=== PATIENT | female | born 1980 | race Caucasian/White ===

== ENCOUNTER 2016-06-14 09:02 | Emergency (ER) | payer OTHER ==
[2016-06-14 09:15] VITALS: RESP 16
[2016-06-14 09:38] LABS: % IMMATURE GRANULYOCYTES 0.3 % (0.0-1.1); ABSOLUTE IMMATURE GRANULOCYTES 0.02 10^3/uL (0.00-0.10); ADD DIFF? NO; ADD MORPH? NO; ADD SCAN? NO; ATYPICAL LYMPHOCYTE FLAG 10 (0-99); FRAGMENT RBC FLAG 0 (0-99); HEMATOCRIT 42.8 % (38.0-47.0); HEMOGLOBIN 14.6 g/dL (12.6-16.3); LEFT SHIFT FLG 0 (0-99); LIPEMIA HEMOLYSIS FLAG 90 (0-99); MEAN CELL HEMOGLOBIN 30.9 pg (27.9-34.1); MEAN CELL HEMOGLOBIN CONCENTR. 34.1 g/dL (32.4-36.7); MEAN CELL VOLUME 90.5 fL (81.5-99.8); MEAN PLATELET VOLUME 11.2 fL (8.7-11.7); PLATELET CLUMPS FLAG 0 (0-99); PLATELET COUNT 216 10^3/uL (150-400); RED BLOOD CELL COUNT 4.73 10^6/uL (4.18-5.33); RED CELL DISTRIBUTION WIDTH 12.2 % (11.5-15.2)
--- NOTE | 2016-06-14 09:39 | EDPHY ---
H & P Stated Complaint: HEADACHE FOR 3 WEEKS, SAW PCP AND EENT, NOT VERTIGO Time Seen by Provider: 06/14/16 09:03 HPI/ROS: CHIEF COMPLAINT: Headache, vertigo worsened with head movement HISTORY OF PRESENT ILLNESS: The patient presents to the ED with a 3 week history of progressively worsening intermittent severe headache. Patient describes a severe retro-orbital headache which is requiring her to use Excedrin on a near daily basis. She has also had some symptoms of vertigo which are exacerbated by flexion of her neck to the full forward position. The patient has been evaluated by ENT who did not find the patient to have symptoms consistent with benign positional vertigo. The patient presents to the emergency department requesting further evaluation. She denies specific complaints of numbness, weakness, head injury, neck pain or neck trauma. The patient is able to recreate her symptoms of vertigo with a forward flexion. REVIEW OF SYSTEMS: A comprehensive 10 point review of systems is otherwise negative aside from elements mentioned in the history of present illness. Source: Patient Exam Limitations: No limitations - Personal History LMP (Females 10-55): 22-28 Days Ago Current Tetanus Diphtheria and Acellular Pertussis (TDAP): Yes Tetanus Vaccine Date: < 10 YEARS - Medical/Surgical History Hx Asthma: No Hx Chronic Respiratory Disease: No Hx Diabetes: No Hx Cardiac Disease: No Hx Renal Disease: No Hx Cirrhosis: No Hx Alcoholism: No Hx HIV/AIDS: No Hx Splenectomy or Spleen Trauma: No Other PMH: R ACL REPAIR - Social History Smoking Status: Never smoked - Physical Exam Exam: General Appearance: Alert, no distress Eyes: Pupils equal and round no pallor or injection ENT, Mouth: Mucous membranes moist Respiratory: There are no retractions, lungs are clear to auscultation Cardiovascular: Regular rate and rhythm Gastrointestinal: Abdomen is soft and nontender, no masses, bowel sounds normal Neurological: Alert and oriented x4, 5/5 strength all 4 extremities, cranial nerves 2-12 intact Skin: Warm and dry, no rashes Musculoskeletal: Neck is supple nontender, no bruit Extremities: symmetrical, full range of motion Constitutional: Initial Vital Signs Temperature (C) 36.7 C 06/14/16 09:13 Heart Rate 87 06/14/16 09:13 Respiratory Rate 16 06/14/16 09:13 Blood Pressure 127/80 H 06/14/16 09:13 O2 Sat (%) 98 06/14/16 09:13 O2 Delivery Mode Room Air Allergies/Adverse Reactions: Penicillins Allergy (Intermediate, Verified 01/04/09 19:54) Hives Home Medications: Medication Instructions Recorded TABLET 01/04/09 Meclizine HCl [Antivert] 25 mg PO BID PRN #60 tablet 06/14/16 Medical Decision Making - Diagnostics Imaging: MRI brain without contrast: Negative for intracranial abnormality. Study results reported to me Dr. Rocha. MR angiogram head: Negative for aneurysm or [place] abnormality. Study results reported to me by Dr. Rocha MR angiogram neck: Negative for carotid or vertebral dissection, stenosis or evidence of vascular insufficiency. Study results reported to me by Dr. Rocha. ED Course/Re-evaluation: The patient had an IV established. She presents to the ED with symptoms consistent with an unspecified vertigo. Given her history of a new progressively worsening headache, a MRI of the brain has been ordered. Given her history of a positional vertigo which is worsened with neck flexion, an MR angiogram of the neck has been ordered to exclude the possibility of vertebral artery dissection. The patient was taken through the Poncho maneuver in the ED. She did have 1 brief episode nystagmus which resolved after movement of her head. The Poncho maneuver did not seem to significantly affect her pattern of positional vertigo. Regarding the patient's headache, she is currently asymptomatic, at this point time there is no evidence of [employer] tumor or obvious aneurysm or central vein thrombosis is an explanation for her headache and vertigo. The patient's angiographic studies are negative for dissection. The patient will be given a prescription for meclizine. She presents to the ED with a slightly atypical case of BPPV versus labyrinthitis. Plan will be for initial trial of meclizine before considering steroids. She will follow up with the Ear Nose Throat as scheduled. Differential Diagnosis: Differential diagnosis considered includes central vertigo, vertebral artery dissection, WRAPP[employer] tumor, benign positional vertigo, labyrinthitis - Data Points Laboratory Results: Laboratory Results 06/14/16 09:25 06/14/16 09:25 06/14/16 06/14/16 06/14/16 09:25 09:25 09:24 WBC 6.13 10^3/uL 10^3/uL (3.80-9.50) RBC 4.73 10^6/uL 10^6/uL (4.18-5.33) Hgb 14.6 g/dL g/dL (12.6-16.3) POC Hgb 15.3 gm/dL gm/dL (12.3-15.9) Hct 42.8 % % (38.0-47.0) POC Hct 45 % % (35.5-47.5) MCV 90.5 fL fL (81.5-99.8) MCH 30.9 pg pg (27.9-34.1) MCHC 34.1 g/dL g/dL (32.4-36.7) RDW 12.2 % % (11.5-15.2) Plt Count 216 10^3/uL 10^3/uL (150-400) MPV 11.2 fL fL (8.7-11.7) Neut % (Auto) 67.6 % % (39.3-74.2) Lymph % (Auto) 25.6 % % (15.0-45.0) [place] % (Auto) 4.7 % % (4.5-13.0) Eos % (Auto) 1.5 % % (0.6-7.6) Baso % (Auto) 0.3 % % (0.3-1.7) Nucleat RBC Rel Count 0.0 % % (0.0-0.2) Absolute Neuts (auto) 4.14 10^3/uL 10^3/uL (1.70-6.50) Absolute Lymphs (auto) 1.57 10^3/uL 10^3/uL (1.00-3.00) Absolute Monos (auto) 0.29 10^3/uL L 10^3/uL (0.30-0.80) Absolute Eos (auto) 0.09 10^3/uL 10^3/uL (0.03-0.40) Absolute Basos (auto) 0.02 10^3/uL 10^3/uL (0.02-0.10) Absolute Nucleated RBC 0.00 10^3/uL 10^3/uL (0-0.01) Immature Gran % 0.3 % % (0.0-1.1) Immature Gran # 0.02 10^3/uL 10^3/uL (0.00-0.10) POC Sodium 144 mEq/L mEq/L (134-144) Sodium 142 mEq/L mEq/L (134-144) POC Potassium 3.6 mEq/L mEq/L (3.3-5.0) Potassium 3.8 mEq/L mEq/L (3.5-5.2) POC Chloride 106 mEq/L mEq/L (96-108) Chloride 107 mEq/L mEq/L (97-110) Carbon Dioxide 21 mEq/l L mEq/l (22-31) Anion Gap 14 mEq/L mEq/L (8-16) POC BUN 18 mg/dL mg/dL (7-23) BUN 18 mg/dL mg/dL (7-23) Creatinine 0.7 mg/dL mg/dL (0.6-1.0) POC Creatinine 0.7 mg/dL mg/dL (0.6-1.2) Estimated GFR > 60 Glucose 97 mg/dL mg/dL (70-100) POC Glucose 102 mg/dL H mg/dL (70-100) Calcium 9.8 mg/dL mg/dL (8.5-10.4) Point of Care Test Results: 06/14/16 09:24 POC Sodium 144 POC Potassium 3.6 POC Chloride 106 POC BUN 18 POC Creatinine 0.7 POC Glucose 102 H Departure - Departure Disposition: Home, Routine, Self-Care Clinical Impression: Vertigo Condition: Good Instructions: Vertigo (ED) Additional Instructions: 1. Take Meclizine as directed. 2. Please follow-up with ENT for unimproved symptoms. Referrals: Nasir Goldstein MD [Medical Doctor] - As per Instructions Prescriptions: Meclizine HCl [Antivert] 25 mg PO BID PRN #60 tablet PRN Reason: for dizzyness
[2016-06-14] MEDS ORDERED: GADOBUTROL 10 ML VIAL IVP ONE (09:48)
[2016-06-14 10:15] LABS: ANION GAP 14 mEq/L (8-16); CALCIUM 9.8 mg/dL (8.5-10.4); CARBON DIOXIDE 21 mEq/l (22-31); CHLORIDE 107 mEq/L (97-110); CREATININE 0.7 mg/dL (0.6-1.0); GLOMERULAR FILTRATION RATE > 60; GLUCOSE 97 mg/dL (70-100); POTASSIUM 3.8 mEq/L (3.5-5.2); SODIUM 142 mEq/L (134-144)
[2016-06-14 11:46] VITALS: BP 104/64; PULSE 70; TEMP 97.5; O2SAT 96
== END 2016-06-14 11:44 | disposition home or self-care (01) ==
DX: R42 Dizziness and giddiness (principal)
CPT/HCPCS: 82947-QW; A9585

== ENCOUNTER → 2017-04-04 | Outpatient (CLI) | payer OTHER | LOC: FIMAGING 11:40 | PROVIDERS: ATTEND Internal Medicine | DX: N63.11 Unspecified lump in the right breast, upper outer quadrant (principal); N63.21 Unspecified lump in the left breast, upper outer quadrant ==